=== PATIENT | female | born 1995 | race Caucasian/White ===

== ENCOUNTER 2016-04-02 16:02 | Emergency (ER) | payer OTHER ==
[~2016-04-02] VITALS: Ht 160 cm; Wt 62.0 kg
[2016-04-02 16:08] VITALS: BP 139/90; PULSE 120; RESP 16; TEMP 98; O2SAT 98
--- NOTE | 2016-04-02 16:24 | PD ---
HPI Chief Complaint: Edema Time Seen by Provider: 16:22 Travel History International Travel<30 days: No Contact w/Intl Traveler<30days: No Traveled to known affect area: No History of Present Illness HPI 20-year-old female came to the emergency room with history of a small nodule in her right groin area that she noticed since yesterday. Patient says that she notices that nodule/not appearing every now and then for past 2 years. Patient had a plasmapheresis done from that site 2 years ago. Since then she has noticed to not come and go. She is here with her sister and they're concerned if there is any sort of a pseudoaneurysm. No history of fever or chills. Patient shaves in that region. Vital signs are stable. [facility] Past Medical History Narrative Medical List of her past medical history as reviewed from the nursing note. LMP: 03/22/16 Social History Tobacco Use: Yes Allergies-Medications (Allergen,Severity, Reaction): Coded Allergies: Celexa (Verified Allergy, Severe, Hives, 04/02/16) Klonopin (Verified Allergy, Severe, Dizziness, 04/02/16) Morphine (Verified Allergy, Severe, Nausea/Vomiting, 04/02/16) Remicade (Verified Allergy, Severe, Anaphylaxis, 04/02/16) Buspar (Verified Allergy, Unknown, 04/02/16) Uncoded Allergies: HUMIRA (Allergy, Severe, 04/02/16) DAMAGE TO EAR Comments List of her allergies reviewed from the nursing note. Reported Meds & Prescriptions Reported Meds & Active Scripts Active No Active Prescriptions or Reported Medications Narrative Medication List of her home medications reviewed from the nursing note. Review of Systems Except as stated in HPI: all other systems reviewed are Neg Physical Exam Narrative GENERAL: Awake, alert, anxious SKIN: Warm and dry. 1 cm x 1 cm firm nodule in the right groin area which is non-erythematous and nontender HEAD: Atraumatic. Normocephalic. EYES: Pupils equal and round. No scleral icterus. No injection or drainage. ENT: No nasal bleeding or discharge. Mucous membranes pink and moist. NECK: Trachea midline. No JVD. CARDIOVASCULAR: Regular rate and rhythm. No murmur appreciated. RESPIRATORY: No accessory muscle use. Clear to auscultation. Breath sounds equal bilaterally. GASTROINTESTINAL: Abdomen soft, non-tender, nondistended. Hepatic and splenic margins not palpable. MUSCULOSKELETAL: No obvious deformities. No clubbing. No cyanosis. No edema. NEUROLOGICAL: Awake and alert. No obvious cranial nerve deficits. Motor grossly within normal limits. Normal speech. PSYCHIATRIC: Appropriate mood and affect; insight and judgment normal. Data Data Last Documented VS Vital Signs Date Time Temp Pulse Resp B/P Pulse Ox O2 Delivery O2 Flow Rate FiO2 04/02/16 16:21 16 04/02/16 16:08 98.0 120 139/90 98 Room Air Orders Us Leg Hematoma/Pseudoaneurysm (04/02/16 18:34) MDM Medical Decision Making Medical Screen Exam Complete: Yes Emergency Medical Condition: Yes Medical Record Reviewed: Yes Differential Diagnosis Inguinal lymphadenopathy, indurated skin, abscess, folliculitis Narrative Course 6:38 PM I explained to the patient and her sister that upon my exam the nodule does not appear to be anything dangerous and an ultrasound could be done as an outpatient ordered by her primary care. However patient insisted that she wanted this to be checked out since this was really making her anxious. Ultrasound has been done. Awaiting for the test result. 7:07 PM ultrasound shows a 1.1 cm fluid-filled structure which could be a sebaceous cyst. I will discharge this patient. Procedures EKG Prior to Arrival: No Diagnosis Primary Impression: Sebaceous cyst Referrals: Collin Cho MD Primary Care Physician Additional Instructions: Please follow-up with your primary care who can refer you to a general surgeon who could probably excise the cyst. You can also call the surgeon whose name and number has been provided to you if you prefer. Med/Other Pt SpecificInfo: No Change to Meds Scripts No Active Prescriptions or Reported Meds Disposition: 01 DISCHARGE HOME Condition: Stable Audra Kinney MD Apr 02, 2016 16:24
--- NOTE | 2016-04-02 19:03 | RADRPT ---
EXAM DATE/TIME: 04/02/2016 17:32 [facility] COMPARISON: No previous studies available for comparison. INDICATIONS : Right leg palpable mass. MEDICAL HISTORY : Plasmapheresis. SURGICAL HISTORY : None. ENCOUNTER: Initial ACUITY: 1 day PAIN SCORE: 4/10 LOCATION: Right groin. AREA EVALUATED: Right medial groin. FINDINGS: Targeted ultrasound to palpable area in the right groin was performed. In the medial groin, there is a focal fluid collection in the subcutaneous soft tissues which measures 1.0 x 0.4 cm. This demonst rates good through-transmission, and is anechoic and there is no flow seen within or about by color D oppler. There is also a solitary lymph node in the region which is normal sonographic features of no rmal size, measuring 1.1-0.9-0.6 cm. CONCLUSION: There is a 1.1 cm lesion in the subcutaneous soft tissues of the medial groin which has fluid charact eristics by ultrasound. No internal flow or hyperemia seen. Marlon Perkins MD on April 02, 2016 at 18:59 Board Certified Radiologist. This report was verified electronically.
== END 2016-04-02 19:43 | disposition home or self-care (01) ==
LOC: NEPC 16:02
DX: L72.3 Sebaceous cyst (principal); Z72.0 Tobacco use
CPT/HCPCS: 93926

== ENCOUNTER 2017-03-09 17:24 | Emergency (ER) | payer OTHER ==
[~2017-03-09] VITALS: Ht 160 cm; Wt 56.5 kg
[2017-03-09 17:25] VITALS: BP 140/75; PULSE 129; RESP 20; TEMP 99.1; O2SAT 99
[2017-03-09] MEDS ORDERED: BENA25CA4 (18:55)
[2017-03-09] MEDS ORDERED: ALPR0.25 PO (18:55)
[2017-03-09] MEDS ORDERED: SPRI28TA PO (18:55)
[2017-03-09] MEDS ORDERED: SODIUM CHLOR 0.9% 1000 ML INJ 1,000 ML IV SCH (19:01)
--- NOTE | 2017-03-09 19:05 | PD ---
HPI Chief Complaint: Abdominal Pain Time Seen by Provider: 18:56 Travel History International Travel<30 days: No Contact w/Intl Traveler<30days: No Traveled to known affect area: No History of Present Illness HPI Examined in the presence of a female nurse. 21-year-old female presents for evaluation of the pain. She reports that she woke up this morning at 6 AM with nausea, vomiting. She went back to sleep and when she woke back up at 9 AM she had persistent nausea which has lasted throughout the day. She has had little to eat or drink throughout the day. She reports that she felt some right upper quadrant pain that radiates into the back this morning as well. The pain is a sharp pain which is constant, no obvious aggravating or alleviating factors. She endorses chills, myalgias, temperature 100.3 this morning. Denies dysuria, hematuria, increased urinary frequency or hesitancy. She endorses chronic diarrhea but denies any acute bowel changes. She denies any cough, congestion, sore throat. She reports that one month ago she was told that she had an abnormally contracted gallbladder on CT scan. She has no other complaints at this time. [facility] Past Medical History Asthma: Yes Diabetes: No Medical other: Yes (CROHN'S) Migraines: Yes Tetanus Vaccination: > 5 Years Influenza Vaccination: No ?: Not LMP: 02/15/17 Past Surgical History Abdominal Surgery: Yes (COLON RESECTION) Other Surgery: Yes (RECTAL SURGERY, SEPTAL) Social History Alcohol Use: No Tobacco Use: No Substance Use: No Allergies-Medications (Allergen,Severity, Reaction): Coded Allergies: citalopram (Unverified Allergy, Severe, Hives, 03/09/17) clonazepam (Unverified Allergy, Severe, Dizziness, 03/09/17) infliximab (Unverified Allergy, Severe, Anaphylaxis, 03/09/17) infliximab-dyyb (Unverified Allergy, Severe, Anaphylaxis, 03/09/17) morphine (Unverified Allergy, Severe, Nausea/Vomiting, 03/09/17) buspirone (Unverified Allergy, Unknown, 03/09/17) Uncoded Allergies: HUMIRA (Allergy, Severe, ANAPHYLAXIS, 03/09/17) Reported Meds & Prescriptions Reported Meds & Active Scripts Active Zofran (Ondansetron HCl) 4 Mg Tab 4 Mg PO Q6HR PRN Reported Sprintec 28 (Norgestimate-Ethinyl Estradiol) 0.25-35 mg-Mcg Tab 1 Tab PO DAILY Alprazolam 0.25 Mg Tab 0.25 Mg PO Q8H PRN Benadryl Allergy (Diphenhydramine HCl) 25 Mg Cap Review of Systems Except as stated in HPI: all other systems reviewed are Neg Physical Exam Narrative GENERAL: Well-developed well-nourished female in no acute distress SKIN: Warm and dry. HEAD: Atraumatic. Normocephalic. EYES: Pupils equal and round. No scleral icterus. No injection or drainage. ENT: No nasal bleeding or discharge. Mucous membranes pink and moist. NECK: Trachea midline. No JVD. CARDIOVASCULAR: Regular rate and rhythm. No murmur appreciated. RESPIRATORY: No accessory muscle use. Clear to auscultation. Breath sounds equal bilaterally. GASTROINTESTINAL: Abdomen soft, there is some focal tenderness to palpation in the right upper quadrant without guarding. MUSCULOSKELETAL: No obvious deformities. No clubbing. No cyanosis. No edema. NEUROLOGICAL: Awake and alert. No obvious cranial nerve deficits. Motor grossly within normal limits. Normal speech. PSYCHIATRIC: Appropriate mood and affect; insight and judgment normal. Data Data Last Documented VS Vital Signs Date Time Temp Pulse Resp B/P (MAP) Pulse Ox O2 Delivery O2 Flow Rate FiO2 03/09/17 18:49 18 03/09/17 17:25 99.1 129 140/75 (96) 99 Room Air Orders Orders Complete Blood Count With Diff (03/09/17 19:01) Comprehensive Metabolic Panel (03/09/17 19:01) Lipase (03/09/17 19:01) Urinalysis - C+S If Indicated (03/09/17 19:01) Us Abdomen Gallbladder (03/09/17 ) Iv Access Insert/Monitor (03/09/17 19:01) Ecg Monitoring (03/09/17 19:01) Oximetry (03/09/17 19:01) Ondansetron Inj (Zofran Inj) (03/09/17 19:15) Sodium Chlor 0.9% 1000 Ml Inj (Ns 1000 M (03/09/17 19:01) Sodium Chloride 0.9% Flush (Ns Flush) (03/09/17 19:15) Ed Urine Pregnancytest Poc (03/09/17 19:01) Lactic Acid Sepsis Protocol (03/09/17 19:01) Blood Culture (03/09/17 19:01) Ct Abd/Pel W Iv Contrast(Rout) (03/09/17 21:20) Acetaminophen (Tylenol) (03/09/17 21:45) Iohexol 350 Inj (Omnipaque 350 Inj) (03/09/17 22:09) Dicyclomine Inj (Bentyl Inj) (03/09/17 22:45) Pantoprazole Inj (Protonix Inj) (03/09/17 22:45) Ed Discharge Order (03/09/17 22:41) Labs Laboratory Tests Test 03/09/17 19:00 03/09/17 19:05 03/09/17 19:40 White Blood Count 6.0 TH/MM3 Red Blood Count 4.49 MIL/MM3 Hemoglobin 13.1 GM/DL Hematocrit 36.7 % Mean Corpuscular Volume 81.7 FL Mean Corpuscular Hemoglobin 29.2 PG Mean Corpuscular Hemoglobin Concent 35.7 % Red Cell Distribution Width 15.0 % Platelet Count 250 TH/MM3 Mean Platelet Volume 8.1 FL Neutrophils (%) (Auto) 77.9 % Lymphocytes (%) (Auto) 11.5 % Monocytes (%) (Auto) 10.1 % Eosinophils (%) (Auto) 0.0 % Basophils (%) (Auto) 0.5 % Neutrophils # (Auto) 4.7 TH/MM3 Lymphocytes # (Auto) 0.7 TH/MM3 Monocytes # (Auto) 0.6 TH/MM3 Eosinophils # (Auto) 0.0 TH/MM3 Basophils # (Auto) 0.0 TH/MM3 CBC Comment DIFF FINAL Differential Comment Blood Urea Nitrogen 9 MG/DL Creatinine 0.80 MG/DL Random Glucose 85 MG/DL Total Protein 8.6 GM/DL Albumin 4.0 GM/DL Calcium Level 9.3 MG/DL Alkaline Phosphatase 45 U/L Aspartate Amino Transf (AST/SGOT) 28 U/L Alanine Aminotransferase (ALT/SGPT) 21 U/L Total Bilirubin 0.5 MG/DL Sodium Level 134 MEQ/L Potassium Level 4.1 MEQ/L Chloride Level 99 MEQ/L Carbon Dioxide Level 24.7 MEQ/L Anion Gap 10 MEQ/L Estimat Glomerular Filtration Rate 90 ML/MIN Lipase 98 U/L Lactic Acid Level 1.1 mmol/L Urine Color YELLOW Urine Turbidity CLEAR Urine pH 6.0 Urine Specific [place] 1.011 Urine Protein NEG mg/dL Urine Glucose (UA) NEG mg/dL Urine Ketones 40 mg/dL Urine Occult Blood NEG Urine Nitrite NEG Urine Bilirubin NEG Urine Urobilinogen LESS THAN 2.0 MG/DL Urine Leukocyte Esterase NEG Urine RBC 5 /hpf Urine WBC LESS THAN 1 /hpf Urine Squamous Epithelial Cells 2 /hpf Urine Bacteria RARE /hpf Urine Hyaline Casts 1 /lpf Urine Mucus FEW /lpf Microscopic Urinalysis Comment CULT NOT INDICATED MDM Medical Decision Making Medical Screen Exam Complete: Yes Emergency Medical Condition: Yes Medical Record Reviewed: Yes Differential Diagnosis Colitis, pyelonephritis, cholecystitis, diverticulitis, appendicitis Narrative Course The patient was placed on ECG monitoring pulse oximetry. Plan is for basic lab work, right upper quadrant ultrasound. She will be given IV fluids, Zofran. CBC is unremarkable. CMP is unremarkable. Lactic acid within normal limits. Urinalysis reveals 5 RBCs and rare bacteria. Gallbladder ultrasound is unremarkable. Given the patient's initial tachycardia, low-grade fever at home as well as history of Crohn's, CT of the abdomen and pelvis has been ordered. Upon examination the patient does feel improved and her heart rate has improved into the mid 90s. CT the abdomen and pelvis reveals no acute abnormalities. The patient feels improved. She will be given Bentyl and Protonix prior to discharge. Diagnosis Primary Impression: Abdominal pain Additional Instructions: Zofran for nausea. Slowly advance diet as tolerated. Follow-up with primary care physician and gastroenterology as scheduled. Return for any emergent medical conditions. Med/Other Pt SpecificInfo: Prescription(s) given Scripts Ondansetron (Zofran) 4 Mg Tab 4 MG PO Q6HR Y for NAUSEA OR VOMITING, #20 TAB 0 Refills Prov: Edwardo Lawson MD 03/09/17 Disposition: 01 DISCHARGE HOME Condition: Stable Maximo Hinson Mar 09, 2017 19:05
[2017-03-09] MEDS: SODIUM CHLORIDE 0.9% FLUSH 10 ML FLUSH IV FLUSH PRN ×2 (19:14→23:04)
[2017-03-09] MEDS ORDERED: ONDANSETRON HCL 4 MG/2 ML VIAL IVP ONE (19:15)
[2017-03-09 19:26] LABS: AUTOMATED NEUTROPHIL # 4.7 TH/MM3 (1.8-7.7); BASOPHIL % 0.5 % (0.0-2.0); HEMATOCRIT 36.7 % (35.0-46.0); HEMOGLOBIN 13.1 GM/DL (11.6-15.3); LYMPH % 11.5 % (9.0-44.0); LYMPHOCYTE # 0.7 TH/MM3 (1.0-4.8); MEAN CELL VOLUME 81.7 FL (80.0-100.0); MEAN CORPUSCULAR HEMOGLOBIN 29.2 PG (27.0-34.0); MEAN CORPUSCULAR HGB CONC 35.7 % (32.0-36.0); MEAN PLATELET VOLUME 8.1 FL (7.0-11.0); MONO % 10.1 % (0.0-8.0); MONOCYTE # 0.6 TH/MM3 (0-0.9); NEUT % 77.9 % (16.0-70.0); PLATELET COUNT 250 TH/MM3 (150-450); RED BLOOD COUNT 4.49 MIL/MM3 (4.00-5.30)
[2017-03-09 19:42] LABS: AST (GOT) 28 U/L (15-37); BICARBONATE 24.7 MEQ/L (21.0-32.0); BLOOD UREA NITROGEN 9 MG/DL (7-18); CALCIUM 9.3 MG/DL (8.5-10.1); CHLORIDE 99 MEQ/L (98-107); GLOMERULAR FILTRATION RATE 90 ML/MIN (>89); GLUCOSE,RANDOM 85 MG/DL (74-106); LIPASE 98 U/L (73-393); SODIUM (NA) 134 MEQ/L (136-145)
[2017-03-09 19:43] LABS: ALT (GPT) 21 U/L (10-53)
[2017-03-09 19:46] LABS: ALKALINE PHOSPHATASE 45 U/L (45-117); TOTAL BILIRUBIN ADULT 0.5 MG/DL (0.2-1.0); TOTAL PROTEIN 8.6 GM/DL (6.4-8.2)
[2017-03-09 20:22] LABS: BACTERIA, URINE RARE /hpf; BILIRUBIN, URINE NEG (NEG); BLOOD, URINE NEG (NEG); GLUCOSE,URINE NEG (NEG); HYALINE CAST, URINE 1 /lpf (RARE); KETONE, URINE 40 mg/dL (NEG); MUCUS URINE FEW /lpf (OCC); NITRITE,URINE NEG (NEG); SQUAMOUS EPITHELIAL CELL URINE 2 /hpf (0-5); URINE COLOR YELLOW (YELLW/STRAW); URINE LEUKOCYTE ESTERASE NEG (NEG)
--- NOTE | 2017-03-09 21:13 | RADRPT ---
EXAM DATE/TIME: 03/09/2017 20:25 [facility] COMPARISON: No previous studies available for comparison. INDICATIONS : Right upper quadrant pain. MEDICAL HISTORY : Crohn's disease. Migraines. Asthma. SURGICAL HISTORY : Colon resection. Rectal surgery. ENCOUNTER: Initial ACUITY: 4-6 days PAIN SCORE: 7/10 LOCATION: Right upper quadrant MEASUREMENTS: LIVER: 13.5 cm length COMMON DUCT: 3 mm RIGHT KIDNEY: 9.8 x 4.1 x 4.1 cm FINDINGS: LIVER: Normal echotexture without focal lesion or ductal dilatation. COMMON DUCT: No intraluminal mass or stone visualized. GALLBLADDER: Contains no stones, demonstrates no wall thickening or pericholecystic fluid. PANCREAS: The visualized portions are within normal limits. RIGHT KIDNEY: No evidence of hydronephrosis, stone, or mass. CONCLUSION: Normal examination for a patient of this age. Sid Lopez MD on March 09, 2017 at 21:10 Board Certified Radiologist. This report was verified electronically.
[2017-03-09] MEDS ORDERED: ACETAMINOPHEN 325 MG TAB PO ONE (21:45)
[2017-03-09] MEDS ORDERED: IOHEXOL 350 MG/ML 10 ML VIAL (for RAD DIAG) IVCONTRAST ONE (22:09)
--- NOTE | 2017-03-09 22:35 | RADRPT ---
EXAM DATE/TIME: 03/09/2017 22:08 [facility] COMPARISON: No previous studies available for comparison. INDICATIONS : Abdominal pain. IV CONTRAST: 80 cc Omnipaque 350 (iohexol) IV ORAL CONTRAST: No oral contrast ingested. RADIATION DOSE: 4.97 CTDIvol (mGy) MEDICAL HISTORY : Crohn's disease. Asthma SURGICAL HISTORY : Colon resection. ENCOUNTER: Initial ACUITY: 1 day PAIN SCALE: 8/10 LOCATION: abdomen TECHNIQUE: Volumetric scanning of the abdomen and pelvis was performed. Using automated exposure control and ad justment of the mA and/or kV according to patient size, radiation dose was kept as low as reasonably achievable to obtain optimal diagnostic quality images. DICOM format image data is available electro nically for review and comparison. FINDINGS: One no acute findings at the lung bases. Liver, spleen, adrenals, kidneys and pancreas are unremarkab le. No calcified gallstones or biliary ductal dilatation. No free fluid. No bowel obstruction. No significant abnormal mural thickening of bowel identified. No inflammatory changes are seen within the abdomen and pelvis. CONCLUSION: 1. No acute findings on abdomen and pelvic CT. Sid Lopez MD on March 09, 2017 at 22:30 Board Certified Radiologist. This report was verified electronically.
[2017-03-09] MEDS ORDERED: ZOFR4TAB PO (22:42)
[2017-03-09] MEDS ORDERED: PANTOPRAZOLE SODIUM 40 MG VIAL IV PUSH ONE (22:45)
[2017-03-09] MEDS ORDERED: DICYCLOMINE HCL 20 MG/2 ML VIAL IM ONE (22:45)
[2017-03-09 23:06] VITALS: BP 109/58
== END 2017-03-09 23:06 | disposition home or self-care (01) ==
LOC: NEPE 17:24
DX: R10.9 Unspecified abdominal pain (principal); K50.90 Crohn's disease, unspecified, without complications
CPT/HCPCS: 74177; 76705; 80053; 81001; 83605; 83690; 84703; 85025; 87040; 96361; 96374; 96375; 99285; C9113; J0500; J2405; J7030; Q9967

== ENCOUNTER 2017-06-18 19:38 | Inpatient (IN) | payer OTHER ==
[~2017-06-18 19:38] MED LIST: ALPR0.25 PO; BENA25CA4 PO; SPRI28TA PO; ZOFR4TAB PO
[2017-06-18 19:41] VITALS: BP 153/75; PULSE 104; RESP 18; TEMP 99; O2SAT 99
[2017-06-18 20:02] LABS: AUTOMATED NEUTROPHIL # 6.6 TH/MM3 (1.8-7.7); BASOPHIL # 0.1 TH/MM3 (0-0.2); BASOPHIL % 0.6 % (0.0-2.0); EOSINOPHIL # 0.1 TH/MM3 (0-0.4); EOSINOPHIL % 0.7 % (0.0-4.0); HEMATOCRIT 42.9 % (35.0-46.0); LYMPH % 22.9 % (9.0-44.0); LYMPHOCYTE # 2.2 TH/MM3 (1.0-4.8); MEAN CELL VOLUME 90.1 FL (80.0-100.0); MEAN CORPUSCULAR HEMOGLOBIN 31.4 PG (27.0-34.0); MEAN CORPUSCULAR HGB CONC 34.8 % (32.0-36.0); MEAN PLATELET VOLUME 7.8 FL (7.0-11.0); MONO % 7.4 % (0.0-8.0); MONOCYTE # 0.7 TH/MM3 (0-0.9); NEUT % 68.4 % (16.0-70.0); PLATELET COUNT 345 TH/MM3 (150-450); RED BLOOD COUNT 4.77 MIL/MM3 (4.00-5.30); RED CELL DISTRIBUTION WIDTH 12.8 % (11.6-17.2); WHITE BLOOD COUNT 9.6 TH/MM3 (4.0-11.0)
[2017-06-18 20:12] LABS: INTERNATIONAL NORMALIZED RATIO 1.1 RATIO; PROTHROMBIN TIME - PATIENT 10.8 SEC (9.8-11.6)
[2017-06-18 20:15] LABS: ALBUMIN 4.2 GM/DL (3.4-5.0); AST (GOT) 14 U/L (15-37); BICARBONATE 30.2 MEQ/L (21.0-32.0); BLOOD UREA NITROGEN 24 MG/DL (7-18); CHLORIDE 102 MEQ/L (98-107); CREATININE 0.82 MG/DL (0.50-1.00); GLOMERULAR FILTRATION RATE 87 ML/MIN (>89); GLUCOSE,RANDOM 84 MG/DL (74-106); SODIUM (NA) 138 MEQ/L (136-145)
[2017-06-18 20:16] LABS: ALT (GPT) 17 U/L (10-53)
[2017-06-18 20:18] LABS: ALKALINE PHOSPHATASE 39 U/L (45-117); TOTAL BILIRUBIN ADULT 0.4 MG/DL (0.2-1.0); TOTAL PROTEIN 8.2 GM/DL (6.4-8.2)
[2017-06-18] MEDS ORDERED: PROM25TA10 PO (21:23)
--- NOTE | 2017-06-18 21:24 | PD ---
Physical Exam Date Seen by Provider: Jun 18, 2017 Narrative Patient presents to us at the request of her ENT doctor because of apparent peritonsillar abscess which is getting worse rather than better with oral antibiotics. Her ENT has asked that the patient be admitted to the hospital for IV antibiotics. He will see the patient in consultation. Data Data Last Documented VS Vital Signs Date Time Temp Pulse Resp B/P (MAP) Pulse Ox O2 Delivery O2 Flow Rate FiO2 06/18/17 19:41 99.0 104 18 153/75 (101) 99 Orders Orders Complete Blood Count With Diff (06/18/17 19:43) Iv Access Insert/Monitor (06/18/17 19:43) Comprehensive Metabolic Panel (06/18/17 19:43) Act Partial Throm Time (Ptt) (06/18/17 19:43) Prothrombin Time / Inr (Pt) (06/18/17 19:43) Clindamycin 600 Mg/Ns Premix (Cleocin 60 (06/18/17 21:30) Dexamethasone Inj (Decadron Inj) (06/18/17 21:30) Labs Laboratory Tests Test 06/18/17 19:51 White Blood Count 9.6 TH/MM3 Red Blood Count 4.77 MIL/MM3 Hemoglobin 15.0 GM/DL Hematocrit 42.9 % Mean Corpuscular Volume 90.1 FL Mean Corpuscular Hemoglobin 31.4 PG Mean Corpuscular Hemoglobin Concent 34.8 % Red Cell Distribution Width 12.8 % Platelet Count 345 TH/MM3 Mean Platelet Volume 7.8 FL Neutrophils (%) (Auto) 68.4 % Lymphocytes (%) (Auto) 22.9 % Monocytes (%) (Auto) 7.4 % Eosinophils (%) (Auto) 0.7 % Basophils (%) (Auto) 0.6 % Neutrophils # (Auto) 6.6 TH/MM3 Lymphocytes # (Auto) 2.2 TH/MM3 Monocytes # (Auto) 0.7 TH/MM3 Eosinophils # (Auto) 0.1 TH/MM3 Basophils # (Auto) 0.1 TH/MM3 CBC Comment DIFF FINAL Differential Comment Prothrombin Time 10.8 SEC Prothromb Time International Ratio 1.1 RATIO Activated Partial Thromboplast Time 25.0 SEC Blood Urea Nitrogen 24 MG/DL Creatinine 0.82 MG/DL Random Glucose 84 MG/DL Total Protein 8.2 GM/DL Albumin 4.2 GM/DL Calcium Level 9.0 MG/DL Alkaline Phosphatase 39 U/L Aspartate Amino Transf (AST/SGOT) 14 U/L Alanine Aminotransferase (ALT/SGPT) 17 U/L Total Bilirubin 0.4 MG/DL Sodium Level 138 MEQ/L Potassium Level 4.1 MEQ/L Chloride Level 102 MEQ/L Carbon Dioxide Level 30.2 MEQ/L Anion Gap 6 MEQ/L Estimat Glomerular Filtration Rate 87 ML/MIN MDM Supervised Visit with ANITA: Yes Narrative Course I, Dr. Bustillo, have reviewed the advance practice practitioner's documentation and am in agreement, met with the patient face to face, made the diagnosis, and the medical decision making was done by me. *My assessment and Findings: Patient is not having any trouble maintaining her airway. She is able to speak without difficulty. She is able to swallow her own secretions. See Stanley Arciniega note for lab and radiology results, final diagnosis and disposition Page Bustillo MD Jun 18, 2017 21:24
[2017-06-18] MEDS ORDERED: DEXAMETHASONE SOD PHOS 20 MG/5 ML VIAL IV PUSH ONE (21:30)
[2017-06-18] MEDS ORDERED: CLINDAMYCIN 600 MG/NS PREMIX 50 ML IV ONE (21:30)
[2017-06-18] MEDS ORDERED: EPINEPHrine HCL (1:1000) 1 MG/ML VIAL IM ONE (21:30)
[2017-06-18] MEDS ORDERED: diphenhydrAMINE HCL 50 MG/ML VIAL ONE (21:31)
[2017-06-18] MEDS ORDERED: ALPRAZolam 0.25 MG TAB PO ONE (21:45)
[2017-06-18] MEDS ORDERED: ONDANSETRON HCL 4 MG/2 ML VIAL IV PUSH PRN (21:45)
[2017-06-18] MEDS ORDERED: diphenhydrAMINE HCL 50 MG/ML VIAL IV PUSH ONE (21:45)
[2017-06-18] MEDS ORDERED: ACETAMINOPHEN/HYDROcodone 325 MG/7.5 MG TAB PO PRN (21:45)
[2017-06-18 22:17] VITALS: BP 133/66; PULSE 113; RESP 16; TEMP 98.3; O2SAT 100
--- NOTE | 2017-06-18 22:20 | PD ---
HPI Chief Complaint: ENT Complaint Time Seen by Provider: 21:05 Travel History International Travel<30 days: No Contact w/Intl Traveler<30days: No Traveled to known affect area: No History of Present Illness HPI 21-year-old female that presents to the ED for evaluation of infection to her throat. Per patient she was sent here by Dr. Castillo for evaluation of this. Per patient she was told that she needed IV antibiotics. She reports that she has been dealing with this for about 2-1/2 months now. Patient follow with her primary care doctor who started her on azithromycin and then gave her Augmentin. She did follow with Dr. Castillo who has been following her up and started her again on Augmentin and dexamethasone. This did not work and the symptoms continue and patient was seen today and recommended that the patient comes here for evaluation and likely IV antibiotics. Patient has a significant history of Crohn's disease but currently takes no medications as she is very allergic to a lot of the medications for Crohn's. She apparently has a lot of reactions to the medications secondary to "a base " found in humira and infliximab and was told to watch for this in other medications. She apparently just finished Augmentin and took the medrol dose pack given to her recently. Patient denies any fevers chills or sweats. Per patient the pain of her throat is 4 out of 10. Hurts to swallow but able to swallow. No hoarseness. PFSH Past Medical History Asthma: Yes Diabetes: No Migraines: Yes ?: Not LMP: 06/17/17 Past Surgical History Abdominal Surgery: Yes (COLON RESECTION) Other Surgery: Yes (RECTAL SURGERY, SEPTAL) Social History Alcohol Use: No Tobacco Use: No Substance Use: No Allergies-Medications (Allergen,Severity, Reaction): Coded Allergies: citalopram (Unverified Allergy, Severe, Hives, 03/09/17) clonazepam (Unverified Allergy, Severe, Dizziness, 03/09/17) dexamethasone (Verified Allergy, Severe, Hives, 06/18/17) infliximab (Unverified Allergy, Severe, Anaphylaxis, 03/09/17) infliximab-dyyb (Unverified Allergy, Severe, Anaphylaxis, 03/09/17) morphine (Unverified Allergy, Severe, Nausea/Vomiting, 03/09/17) Rat Serum Proteins (Verified Allergy, Unknown, 06/18/17) buspirone (Unverified Allergy, Unknown, 03/09/17) iron (Verified Allergy, Unknown, 06/18/17) Uncoded Allergies: HUMIRA (Allergy, Severe, ANAPHYLAXIS, 03/09/17) Reported Meds & Prescriptions Reported Meds & Active Scripts Active Reported Phenergan (Promethazine HCl) 25 Mg Tablet 25 Mg PO ONCE Sprintec 28 (Norgestimate-Ethinyl Estradiol) 0.25-35 mg-Mcg Tab 1 Tab PO DAILY Alprazolam 0.25 Mg Tab 0.25 Mg PO Q8H PRN Benadryl Allergy (Diphenhydramine HCl) 25 Mg Cap Review of Systems Except as stated in HPI: all other systems reviewed are Neg Physical Exam Narrative GENERAL: SKIN: Warm and dry. HEAD: Atraumatic. Normocephalic. EYES: Pupils equal and round. No scleral icterus. No injection or drainage. ENT: No nasal bleeding or discharge. Mucous membranes pink and moist. Tongue is midline. No uvula deviation. Patient has enlarged tonsils bilaterally with exudates bilaterally. Right worse than left. Some purulence appears to be more noted on the right than the left. No obvious lymphadenopathy. NECK: Trachea midline. No JVD. CARDIOVASCULAR: Regular rate and rhythm. RESPIRATORY: No accessory muscle use. Clear to auscultation. Breath sounds equal bilaterally. GASTROINTESTINAL: Abdomen soft, non-tender, nondistended. Hepatic and splenic margins not palpable. MUSCULOSKELETAL: Extremities without clubbing, cyanosis, or edema. No obvious deformities. NEUROLOGICAL: Awake and alert. No obvious cranial nerve deficits. Motor grossly within normal limits. Five out of 5 muscle strength in the arms and legs. Normal speech. PSYCHIATRIC: Appropriate mood and affect; insight and judgment normal. Data Data Last Documented VS Vital Signs Date Time Temp Pulse Resp B/P (MAP) Pulse Ox O2 Delivery O2 Flow Rate FiO2 06/18/17 19:41 99.0 104 18 153/75 (101) 99 Orders Orders Complete Blood Count With Diff (06/18/17 19:43) Iv Access Insert/Monitor (06/18/17 19:43) Comprehensive Metabolic Panel (06/18/17 19:43) Act Partial Throm Time (Ptt) (06/18/17 19:43) Prothrombin Time / Inr (Pt) (06/18/17 19:43) Clindamycin 600 Mg/Ns Premix (Cleocin 60 (06/18/17 21:30) Dexamethasone Inj (Decadron Inj) (06/18/17 21:30) Epinephrine (1:1000) Inj (Adrenalin (1:1 (06/18/17 21:30) Diphenhydramine Inj (Benadryl Inj) (06/18/17 21:45) Diphenhydramine Inj (Benadryl Inj) (06/18/17 21:31) Admit Order (Ed Use Only) (06/18/17 21:34) Clindamycin 900 Mg/Ns Premix (Cleocin 90 (06/19/17 06:00) Dexamethasone Inj (Decadron Inj) (06/19/17 02:00) Acetamin-Hydrocod 325-7.5 Mg ([place] 7.5 (06/18/17 21:45) Ondansetron Inj (Zofran Inj) (06/18/17 21:45) C Diff Toxin Pcr (06/18/17 21:33) Diet Regular Basic (06/19/17 Breakfast) Consult Ent (06/18/17 ) Activity Oob Ad Alondra (06/18/17 21:33) Vital Signs (Adult) BILL.Q4H (06/18/17 21:33) Admit To Inpatient (06/18/17 ) Inpatient Certification (06/18/17 ) Labs Laboratory Tests Test 06/18/17 19:51 White Blood Count 9.6 TH/MM3 Red Blood Count 4.77 MIL/MM3 Hemoglobin 15.0 GM/DL Hematocrit 42.9 % Mean Corpuscular Volume 90.1 FL Mean Corpuscular Hemoglobin 31.4 PG Mean Corpuscular Hemoglobin Concent 34.8 % Red Cell Distribution Width 12.8 % Platelet Count 345 TH/MM3 Mean Platelet Volume 7.8 FL Neutrophils (%) (Auto) 68.4 % Lymphocytes (%) (Auto) 22.9 % Monocytes (%) (Auto) 7.4 % Eosinophils (%) (Auto) 0.7 % Basophils (%) (Auto) 0.6 % Neutrophils # (Auto) 6.6 TH/MM3 Lymphocytes # (Auto) 2.2 TH/MM3 Monocytes # (Auto) 0.7 TH/MM3 Eosinophils # (Auto) 0.1 TH/MM3 Basophils # (Auto) 0.1 TH/MM3 CBC Comment DIFF FINAL Differential Comment Prothrombin Time 10.8 SEC Prothromb Time International Ratio 1.1 RATIO Activated Partial Thromboplast Time 25.0 SEC Blood Urea Nitrogen 24 MG/DL Creatinine 0.82 MG/DL Random Glucose 84 MG/DL Total Protein 8.2 GM/DL Albumin 4.2 GM/DL Calcium Level 9.0 MG/DL Alkaline Phosphatase 39 U/L Aspartate Amino Transf (AST/SGOT) 14 U/L Alanine Aminotransferase (ALT/SGPT) 17 U/L Total Bilirubin 0.4 MG/DL Sodium Level 138 MEQ/L Potassium Level 4.1 MEQ/L Chloride Level 102 MEQ/L Carbon Dioxide Level 30.2 MEQ/L Anion Gap 6 MEQ/L Estimat Glomerular Filtration Rate 87 ML/MIN MDM Medical Decision Making Medical Screen Exam Complete: Yes Emergency Medical Condition: Yes Medical Record Reviewed: Yes Interpretation(s) CBC & BMP Diagram 06/18/17 19:51 Total Protein 8.2, Albumin 4.2, Calcium Level 9.0, Alkaline Phosphatase 39 L, Aspartate Amino Transf (AST/SGOT) 14 L, Alanine Aminotransferase (ALT/SGPT) 17, Total Bilirubin 0.4 Differential Diagnosis Tonsillitis versus tonsil abscess versus peritonsillar abscess Narrative Course 21-year-old female that presents to the ED for evaluation of sore throat and tonsillar abscess. Patient was properly examined and was found to have signs and symptoms consistent appears to be possible tonsillar abscess that appears to be draining. Labs were done in triage. Patient was seen by Dr. Castillo in his office and sent here for admission and IV antibiotics. I spoke with Dr. Castillo over the phone who wanted us to admit the patient to medicine and start patient on IV clindamycin as well as dexamethasone as patient continues to have symptoms and does not appear to be improving. He states that he is not expecting the patient to have any surgery and patient can eat. Consult to him. Patient was told this and patient agrees to for us to proceed. IV clindamycin and dexamethasone ordered by me. Case discussed with Dr. Kauffman who agreed to admission. While I was discussing the case with Dr. Kauffman for admission I was called by ED nurse that patient was having a reaction to the dexamethasone. Patient was having erythema and burning sensation. She was feeling short of breath but that went away. My attending Dr Bustillo was made aware of this and evaluated patient with me immediately. Immediately Benadryl was given. Patient was given epi nephron. Symptoms improved. No other medication was given so likely this is a reaction to dexamethasone. At this time this medication will be added to her medical allergies. I paged the [facility] doctors and Dr. Burrell was superintendent of generation now for Dr. Kauffman was made aware of need to stop this medication as patient appears to be allergic to it. I did discuss with the patient if she has ever had steroids IV in the past and she states that she has had and she actually has taken steroids multiple times with no problems, more especifically she has taken solumedrol with no issues. Diagnosis Primary Impression: Tonsillar abscess Additional Impression: Failure of outpatient treatment Admitting Information Admitting Physician Requests: Jesus Riley Jun 18, 2017 22:20
[2017-06-19] MEDS ORDERED: NALT50TA3 PO (00:16)
[2017-06-19] MEDS ORDERED: POTA2TAB PO (00:23)
[2017-06-19] MEDS ORDERED: GING500C2 PO (00:23)
[2017-06-19] MEDS ORDERED: CHOL5000 PO (00:23)
[2017-06-19] MEDS ORDERED: FOLI800T PO (00:23)
[2017-06-19] MEDS ORDERED: LACTCAP8 PO ×2 (00:23)
[2017-06-19] MEDS ORDERED: ECHI500C5 PO (00:27)
[2017-06-19] MEDS ORDERED: TURM500C PO (00:27)
[2017-06-19] MEDS ORDERED: [UNRECOGNIZED DRUG - OTHER] PO (00:29)
[2017-06-19] MEDS ORDERED: DEXAMETHASONE SOD PHOS 4 MG/ML VIAL IV PUSH SCH (02:00)
[2017-06-19 04:33] VITALS: BP 108/55; PULSE 83; RESP 16; TEMP 98.5; O2SAT 97
[2017-06-19] MEDS: diphenhydrAMINE HCL 25 MG CAP PO PRN ×2 (05:07→20:58)
[2017-06-19] MEDS: CLINDAMYCIN 900 MG/NS PREMIX 50 ML IV SCH ×3 (06:13→22:55)
--- NOTE | 2017-06-19 06:46 | PD.CONS ---
History of Present Illness Service ENT Consult Requested By ED Reason for Consult Right peritonsillar abscess Primary Care Physician Marlon Sampson MD Diagnoses: History of Present Illness 21 year old female has had tonsillitis for the past month. Has been treated with PO Azithromycin, Augmentin and Medrol dose pack twice. Had some spontaneous drainage from a right [employer] but has not resolved. Admitted for IV therapy. Had had improvement overnight. Review of Systems Ears, nose, mouth, throat: COMPLAINS OF: Throat pain, DENIES: Nasal discharge, Oral lesions Past Family Social History Allergies: Coded Allergies: citalopram (Unverified Allergy, Severe, Hives, 03/09/17) clonazepam (Unverified Allergy, Severe, Dizziness, 03/09/17) dexamethasone (Verified Allergy, Severe, Hives, 06/18/17) infliximab (Unverified Allergy, Severe, Anaphylaxis, 03/09/17) infliximab-dyyb (Unverified Allergy, Severe, Anaphylaxis, 03/09/17) morphine (Unverified Allergy, Severe, Nausea/Vomiting, 03/09/17) Rat Serum Proteins (Verified Allergy, Unknown, 06/18/17) buspirone (Unverified Allergy, Unknown, 03/09/17) iron (Verified Allergy, Unknown, 06/18/17) Uncoded Allergies: HUMIRA (Allergy, Severe, ANAPHYLAXIS, 03/09/17) Physical Exam Vital Signs Vital Signs Date Time Temp Pulse Resp B/P (MAP) Pulse Ox O2 Delivery O2 Flow Rate FiO2 06/19/17 04:33 98.5 83 16 108/55 (72) 97 06/18/17 22:17 98.3 113 16 133/66 (88) 100 06/18/17 21:39 114 150/96 06/18/17 19:41 99.0 104 18 153/75 (101) 99 Physical Exam GENERAL: This is a well-nourished, well-developed patient, in no apparent distress. SKIN: No rashes, ecchymoses or lesions. Cool and dry. HEAD: Atraumatic. Normocephalic. No temporal or scalp tenderness. EYES: Pupils equal round and reactive. Extraocular motions intact. No scleral icterus. No injection or drainage. ENT: Nose without bleeding, purulent drainage or septal hematoma. Throat with tonsillar hypertrophy, resolving exudate. Uvula midline. Airway patent. NECK: Trachea midline. No JVD or lymphadenopathy. Supple, nontender, no meningeal signs. NEUROLOGICAL: Awake and alert. Cranial nerves II through XII intact. Normal speech. Laboratory Laboratory Tests Test 06/18/17 19:51 White Blood Count 9.6 Red Blood Count 4.77 Hemoglobin 15.0 Hematocrit 42.9 Mean Corpuscular Volume 90.1 Mean Corpuscular Hemoglobin 31.4 Mean Corpuscular Hemoglobin Concent 34.8 Red Cell Distribution Width 12.8 Platelet Count 345 Mean Platelet Volume 7.8 Neutrophils (%) (Auto) 68.4 Lymphocytes (%) (Auto) 22.9 Monocytes (%) (Auto) 7.4 Eosinophils (%) (Auto) 0.7 Basophils (%) (Auto) 0.6 Neutrophils # (Auto) 6.6 Lymphocytes # (Auto) 2.2 Monocytes # (Auto) 0.7 Eosinophils # (Auto) 0.1 Basophils # (Auto) 0.1 CBC Comment DIFF FINAL Differential Comment Prothrombin Time 10.8 Prothromb Time International Ratio 1.1 Activated Partial Thromboplast Time 25.0 Blood Urea Nitrogen 24 Creatinine 0.82 Random Glucose 84 Total Protein 8.2 Albumin 4.2 Calcium Level 9.0 Alkaline Phosphatase 39 Aspartate Amino Transf (AST/SGOT) 14 Alanine Aminotransferase (ALT/SGPT) 17 Total Bilirubin 0.4 Sodium Level 138 Potassium Level 4.1 Chloride Level 102 Carbon Dioxide Level 30.2 Anion Gap 6 Estimat Glomerular Filtration Rate 87 Result Diagram: 06/18/17195006/18/171950 Assessment and Plan Assessment and Plan Right peritonsillar abscess. On IV Clindamycin. Now improving. Can stop steroids. Would continue IV meds today, Sunday into Sunday. Anticipate discharge home Sunday. Will follow up tomorrow morning. Sid Castillo MD Jun 19, 2017 06:45
--- NOTE | 2017-06-19 08:13 | HHI.HP ---
HPI Service [facility] Hospitalists Primary Care Physician Marlon Sampson MD Admission Diagnosis tonsilar abscess, failed outpatient treatment Chief Complaint: sent by MD for IV abx for tonsilar abscess Travel History International Travel<30 Days: No Contact w/Intl Traveler <30 Da: No Traveled to Known Affected Are: No History of Present Illness There is a 21-year-old female patient with past medical history which includes vestibular nerve damage, Crohn's disease and anxiety. Patient presents to the emergency department as instructed by her ENT doctor Jonathan due to worsening peritonsillar abscess. Patient reports she has been going on for about 2-1/2 months now. Patient was originally seen by her primary care doctor who started her on azithromycin and then gave her Augmentin. She did follow with Dr. Castillo who has been following her and started her on Augmentin and dexamethasone. Despite abx and steroids patient's symptoms continued and patient was seen yesterday by Dr. Castillo who recommended that the patient go to [facility] for [place] antibiotics. Per patient the pain of her throat is 4 out of 10. Patient endorses pain with swallowing but she is able to swallow and able manage oral secretions. No hoarseness noted. Patient denies SOB, difficulty breathing, chest pain, fevers, chills, N/V. Review of Systems Constitutional: DENIES: Fatigue, Fever, Chills Ears, nose, mouth, throat: COMPLAINS OF: Throat pain Respiratory: DENIES: Cough, Sputum production, Shortness of breath Cardiovascular: DENIES: Chest pain, Dyspnea on Exertion, Lower Extremity Edema Gastrointestinal: DENIES: Abdominal pain, Constipation, Nausea, Vomiting Neurologic: DENIES: Abnormal gait, Headache, Localized weakness Psychiatric: DENIES: Anxiety, Confusion, Mood changes Past Family Social History Past Medical History vestibular nerve damage, Crohn's disease, asthma, migraines and anxiety Last menstrual period 06/17/2017 Past Surgical History Colon resection, septoplasty, multiple colonoscopies Reported Medications [Blueberry Extract] 1,000 Mg PO HS Turmeric 500 mg Capsule (Turmeric/Turmeric Root Extract) 450 Mg-50 Mg Capsule 500 Mg PO HS Echinacea 500 Mg Capsule 1,200 Mg PO BID Potassium Gluconate 500 Mg (83 Mg) Tab 99 Mg PO HS Probiotic (Lactobacillus Acidophilus) 10 Billion Cell Cap 1 Cap PO BID Vitamin D3 (Cholecalciferol) 5,000 Unit Cap 25,000 Units PO HS Jeanna Root (Jeanna (Zingiber Officinalis)) 500 Mg Cap 1,100 Mg PO HS Probiotic (Lactobacillus Acidophilus) 10 Billion Cell Cap 1 Cap PO HS Folic Acid 0.8 Mg Tab 800 Mcg PO HS Naltrexone (Naltrexone HCl) 50 Mg Tab 4.5 Mg PO DAILY Phenergan (Promethazine HCl) 25 Mg Tablet 25 Mg PO PRN Sprintec 28 (Norgestimate-Ethinyl Estradiol) 0.25-35 mg-Mcg Tab 1 Tab PO DAILY Alprazolam 0.25 Mg Tab 0.25 Mg PO TID PRN Benadryl Allergy (Diphenhydramine HCl) 25 Mg Cap 25 PO 4-6 TIMES A DAY Allergies: Coded Allergies: citalopram (Unverified Allergy, Severe, Hives, 03/09/17) clonazepam (Unverified Allergy, Severe, Dizziness, 03/09/17) dexamethasone (Verified Allergy, Severe, Hives, 06/18/17) infliximab (Unverified Allergy, Severe, Anaphylaxis, 03/09/17) infliximab-dyyb (Unverified Allergy, Severe, Anaphylaxis, 03/09/17) morphine (Unverified Allergy, Severe, Nausea/Vomiting, 03/09/17) Rat Serum Proteins (Verified Allergy, Unknown, 06/18/17) buspirone (Unverified Allergy, Unknown, 03/09/17) iron (Verified Allergy, Unknown, 06/18/17) Uncoded Allergies: HUMIRA (Allergy, Severe, ANAPHYLAXIS, 03/09/17) Family History Mother and sister have migraine headaches Father has diabetes mellitus and heart disease Mother and father both have hypertension Grandmother had pancreatic cancer grandfather Social History Patient denies EtOH use tobacco use or illicit drug use Physical Exam Vital Signs Vital Signs Date Time Temp Pulse Resp B/P (MAP) Pulse Ox O2 Delivery O2 Flow Rate FiO2 06/19/17 04:33 98.5 83 16 108/55 (72) 97 06/18/17 22:17 98.3 113 16 133/66 (88) 100 06/18/17 21:39 114 150/96 06/18/17 19:41 99.0 104 18 153/75 (101) 99 Physical Exam GENERAL: This is a well-nourished, well-developed patient, in no apparent distress. SKIN: No rashes, ecchymoses or lesions. Cool and dry. HEAD: Atraumatic. Normocephalic. No temporal or scalp tenderness. EYES: Pupils equal round and reactive. Extraocular motions intact. No scleral icterus. No injection or drainage. ENT: Nose without bleeding, purulent drainage or septal hematoma. Throat without erythema, tonsillar hypertrophy or exudate. Uvula midline. Airway patent. NECK: Trachea midline. No JVD or lymphadenopathy. Supple, nontender, no meningeal signs. CARDIOVASCULAR: Regular rate and rhythm without murmurs, gallops, or rubs. RESPIRATORY: Clear to auscultation. Breath sounds equal bilaterally. No wheezes , rales, or rhonchi. GASTROINTESTINAL: Abdomen soft, non-tender, nondistended. No hepato-splenomegaly , or palpable masses. No guarding. MUSCULOSKELETAL: Extremities without clubbing, cyanosis, or edema. No joint tenderness, effusion, or edema noted. No calf tenderness. Negative Homans sign bilaterally. NEUROLOGICAL: Awake and alert. Cranial nerves II through XII intact. Motor and sensory grossly within normal limits. Five out of 5 muscle strength in all muscle groups. Normal speech. Laboratory Laboratory Tests Test 06/18/17 19:51 White Blood Count 9.6 Red Blood Count 4.77 Hemoglobin 15.0 Hematocrit 42.9 Mean Corpuscular Volume 90.1 Mean Corpuscular Hemoglobin 31.4 Mean Corpuscular Hemoglobin Concent 34.8 Red Cell Distribution Width 12.8 Platelet Count 345 Mean Platelet Volume 7.8 Neutrophils (%) (Auto) 68.4 Lymphocytes (%) (Auto) 22.9 Monocytes (%) (Auto) 7.4 Eosinophils (%) (Auto) 0.7 Basophils (%) (Auto) 0.6 Neutrophils # (Auto) 6.6 Lymphocytes # (Auto) 2.2 Monocytes # (Auto) 0.7 Eosinophils # (Auto) 0.1 Basophils # (Auto) 0.1 CBC Comment DIFF FINAL Differential Comment Prothrombin Time 10.8 Prothromb Time International Ratio 1.1 Activated Partial Thromboplast Time 25.0 Blood Urea Nitrogen 24 Creatinine 0.82 Random Glucose 84 Total Protein 8.2 Albumin 4.2 Calcium Level 9.0 Alkaline Phosphatase 39 Aspartate Amino Transf (AST/SGOT) 14 Alanine Aminotransferase (ALT/SGPT) 17 Total Bilirubin 0.4 Sodium Level 138 Potassium Level 4.1 Chloride Level 102 Carbon Dioxide Level 30.2 Anion Gap 6 Estimat Glomerular Filtration Rate 87 Result Diagram: 06/18/17195006/18/171950 Caprini VTE Risk Assessment Caprini VTE Risk Assessment: No/Low Risk (score <= 1) Caprini Risk Assessment Model Point Value = 1 Point Value = 2 Point Value = 3 Point Value = 5 Age 41-60 Minor surgery BMI > 25 kg/m2 Swollen legs Varicose veins or History of unexplained or recurrent spontaneous Oral contraceptives or hormone replacement Sepsis (< 1 month) Serious lung disease, including pneumonia (< 1 month) Abnormal pulmonary function Acute myocardial infarction Congestive heart failure (< 1 month) History of inflammatory bowel disease Medical patient at bed rest Age 61-74 Arthroscopic surgery Major open surgery (> 45 min) Laparoscopic surgery (> 45 min) Malignancy Confined to bed (> 72 hours) Immobilizing plaster cast Central venous access Age >= 75 History of VTE Family history of VTE Factor V Leiden Prothrombin [id number] Lupus anticoagulant Anticardiolipin antibodies Elevated serum homocysteine Heparin-induced thrombocytopenia Other congenital or acquired thrombophilia Stroke (< 1 month) Elective arthroplasty Hip, pelvis, or leg fracture Acute spinal cord injury (< 1 month) Prophylaxis Regimen Total Risk Factor Score Risk Level Prophylaxis Regimen 0-1 Low Early ambulation 2 Moderate Order ONE of the following: *Sequential Compression Device (SCD) *Heparin 5000 units SQ BID 3-4 Higher Order ONE of the following medications: *Heparin 5000 units SQ TID *Enoxaparin/Lovenox 40 mg SQ daily (WT < 150 kg, CrCl > 30 mL/min) *Enoxaparin/Lovenox 30 mg SQ daily (WT < 150 kg, CrCl > 10-29 mL/min) *Enoxaparin/Lovenox 30 mg SQ BID (WT < 150 kg, CrCl > 30 mL/min) AND/OR *Sequential Compression Device (SCD) 5 or more Highest Order ONE of the following medications: *Heparin 5000 units SQ TID (Preferred with Epidurals) *Enoxaparin/Lovenox 40 mg SQ daily (WT < 150 kg, CrCl > 30 mL/min) *Enoxaparin/Lovenox 30 mg SQ daily (WT < 150 kg, CrCl > 10-29 mL/min) *Enoxaparin/Lovenox 30 mg SQ BID (WT < 150 kg, CrCl > 30 mL/min) AND *Sequential Compression Device (SCD) Assessment and Plan Problem List: (1) Tonsillar abscess ICD Codes: J36 - Peritonsillar abscess Status: Acute Plan: There is a 21-year-old female patient with past medical history which includes vestibular nerve damage, Crohn's disease and anxiety. Patient presents to the emergency department as instructed by her ENT doctor Jonathan due to worsening peritonsillar abscess. Patient reports she has been going on for about 2-1/2 months now. Patient was originally seen by her primary care doctor who started her on azithromycin and then gave her Augmentin. She did follow with Dr. Castillo who has been following her and started her on Augmentin and dexamethasone. Despite abx and steroids patient's symptoms continued and patient was seen yesterday by Dr. Castillo who recommended that the patient go to [facility] for IV antibiotics. Per patient the pain of her throat is 4 out of 10. Patient endorses pain with swallowing but she is able to swallow and able manage oral secretions. No hoarseness noted. Patient denies SOB, difficulty breathing, chest pain, fevers, chills, N/V. Clindamycin IV every 8 hours. Patient was initially placed on dexamethasone 4 mg IV every 6 hours which patient then had reaction requiring Epinephrine and Benadryl. Dexamethasone DC' d Consultation placed to ENT, appreciate input recommends no further steroids, continue IV antibiotics today and tomorrow possible discharge tomorrow afternoon. Plan to discharge once status improves and cleared by ENT Patient has not had imaging in the hospital will defer imaging to Dr. Castillo. Per ER PA patient had outpatient imaging with Dr. Jonathan Decker as needed for pain Discussed the risks of C diff. Patient has had C diff in the past. Patient reports she is having diarrhea more frequently then her normal Crohn's disease stool request C diff Throat culture requested Close observation and supportive care (2) Failure of outpatient treatment ICD Codes: Z78.9 - Other specified health status Status: Acute Plan: See above (3) Crohns disease ICD Codes: K50.90 - Crohn's disease, unspecified, without complications Plan: Patient has tried Humira with no improvement of symptoms Patient has had Remicade which resulted in anaphylactic shock partial bowel resection in the past Patient follows with [facility] outpatient Assessment and Plan Patient examined. Assessment and plan formulated with Yoanna Pacheco PA-C. I agree with the above. tonsillar abscess. multiple courses of po abx by pcp and ent. pt sent to ED by ENT for iv abx and steroids. pt reacted to decadron last night. apparently the tonsillar swelling has improved overnight. she has crohns dz. I'm worried she will develop cdiff. She is aware. Pt understands she may require tonsillectomy. culture sent. dc when ok with ENT> Physician Certification 2 Midnight Certification Type: Admission for Inpatient Services Order for Inpatient Services The services are ordered in accordance with Medicare regulations or non- Medicare payer requirements, as applicable. In the case of services not specified as inpatient-only, they are appropriately provided as inpatient services in accordance with the 2-midnight benchmark. Estimated LOS (days): 2 days is the estimated time the patient will need to remain in the hospital, assuming treatment plan goals are met and no additional complications. Post-Hospital Plan: Home Yoanna Pacheco Jun 19, 2017 08:13 Giorgio Yu MD Jun 19, 2017 13:42
[2017-06-19 09:02] VITALS: BP 113/64; PULSE 66; RESP 16; TEMP 97.8; O2SAT 99
[2017-06-19] MEDS: LACTOBACILLUS ACIDOPHILUS TAB PO SCH ×2 (12:00→20:58)
[2017-06-19 12:17] VITALS: BP 122/71; PULSE 95; RESP 18; TEMP 98.4; O2SAT 98
[2017-06-19] MEDS: ALPRAZolam 0.25 MG TAB PO PRN ×2 (13:49→20:58)
[2017-06-19 17:01] VITALS: BP 107/58; PULSE 88; RESP 18; TEMP 98.4; O2SAT 97
[2017-06-19 18:50] VITALS: PULSE 95
[2017-06-19 20:00] VITALS: BP 117/75; PULSE 120; PULSE 77; RESP 18; TEMP 98.1; O2SAT 99
[2017-06-20] VITALS: BP 112/56; PULSE 70; PULSE 81; RESP 18; TEMP 97.9; O2SAT 97
[2017-06-20 04:00] VITALS: BP 104/56; PULSE 70; PULSE 88; RESP 18; TEMP 99; O2SAT 98
[2017-06-20] MEDS: CLINDAMYCIN 900 MG/NS PREMIX 50 ML IV SCH (06:00)
[2017-06-20] MEDS: diphenhydrAMINE HCL 25 MG CAP PO PRN (06:15)
[2017-06-20 08:13] VITALS: BP 108/56; PULSE 69; RESP 17; TEMP 97.9; O2SAT 100
[2017-06-20] MEDS: LACTOBACILLUS ACIDOPHILUS TAB PO SCH (08:30)
[2017-06-20] MEDS ORDERED: NORGESTIMATE ETHINYL ESTRADIOL PO SCH (09:00)
--- NOTE | 2017-06-20 09:29 | HHI.PR ---
Subjective Remarks Tonsil feel better. No WBC elevation. Does have C diff from treatment. Objective Vital Signs Date Time Temp Pulse Resp B/P (MAP) Pulse Ox O2 Delivery O2 Flow Rate FiO2 06/20/17 04:00 70 06/20/17 04:00 99.0 88 18 104/56 (72) 98 06/20/17 00:00 Room Air 06/20/17 00:00 97.9 70 18 112/56 (74) 97 06/20/17 00:00 81 06/19/17 20:00 98.1 77 18 117/75 (89) 99 06/19/17 20:00 120 06/19/17 20:00 Room Air 06/19/17 18:50 95 06/19/17 17:01 98.4 88 18 107/58 (74) 97 06/19/17 12:17 98.4 95 18 122/71 (88) 98 I/O 06/19/17 06/19/17 06/19/17 06/20/17 06/20/17 06/20/17 07:00 15:00 23:00 07:00 15:00 23:00 Intake Total 380 ml Output Total 2 ml Balance 378 ml Intake Oral 280 ml IV Total 100 ml Output Urine Total 2 ml # Bowel Movements 1 0 Result Diagram: 06/18/17195006/18/171950 Assessment and Plan Assessment and Plan Right peritonsillar abscess. Has C diff. Tonsils look muche better. Can stop antibiotics. To be treated with Flagyl. Can discharge and follow as outpatient with ENT in 2 weeks. Sid Castillo MD Jun 20, 2017 09:29
--- NOTE | 2017-06-20 09:56 | HHI.PR ---
Subjective Remarks pt says her tonsils look smaller. swallowing ok no abdomen pain. no rectal bleeding no vomiting. no fevers or chills. Objective Vitals heart reg lung cta abd s/nt ext no edema Vital Signs Date Time Temp Pulse Resp B/P (MAP) Pulse Ox O2 Delivery O2 Flow Rate FiO2 06/20/17 04:00 70 06/20/17 04:00 99.0 88 18 104/56 (72) 98 06/20/17 00:00 Room Air 06/20/17 00:00 97.9 70 18 112/56 (74) 97 06/20/17 00:00 81 06/19/17 20:00 98.1 77 18 117/75 (89) 99 06/19/17 20:00 120 06/19/17 20:00 Room Air 06/19/17 18:50 95 06/19/17 17:01 98.4 88 18 107/58 (74) 97 06/19/17 12:17 98.4 95 18 122/71 (88) 98 Result Diagram: 06/18/17195006/18/171950 A/P Problem List: (1) Tonsillar abscess ICD Codes: J36 - Peritonsillar abscess Status: Acute Plan: There is a 21-year-old female patient with past medical history which includes vestibular nerve damage, Crohn's disease and anxiety. Patient presents to the emergency department as instructed by her ENT doctor Jonathan due to worsening peritonsillar abscess. Patient reports she has been going on for about 2-1/2 months now. Patient was originally seen by her primary care doctor who started her on azithromycin and then gave her Augmentin. She did follow with Dr. Castillo who has been following her and started her on Augmentin and dexamethasone. Despite abx and steroids patient's symptoms continued and patient was seen yesterday by Dr. Castillo who recommended that the patient go [place] [facility] [place]. Per patient the pain of her throat is 4 out of 10. Patient endorses pain with swallowing but she is able to swallow and able manage oral secretions. No hoarseness noted. Patient denies SOB, difficulty breathing, chest pain, fevers, chills, N/V. Patient was initially placed on dexamethasone 4 mg IV every 6 hours which patient then had reaction (flushing and ?throat tightening)requiring Epinephrine and Benadryl. Dexamethasone DC'd On further questioning pt says she has had perhaps 4 or 5 abx courses since the beginning of her tonillitis sx's. On admission she reported nml amt of bm's per day to be around 6 or 7 and for weeks since being on abx has had up to 15 per day. She was not alarmed and said it was nothing like her previous c diff episodes. denies f/c, no abd pain. also no rectal bleeding we checked her c diff pcr and it's positive. I spoke with Dr Castillo and we are stopping antibiotics. He says her right tonsillar abscess spontaneously drained. I discussed with Dr Castillo and the pt...I thing further abx should be avoided and just perform tonsillectomy should tonsillar infection continue to be a problem. d/c on 2 weeks flagyl and pt is to f/u with pcp and notify her MD with any concerning sx's prior. also she is established with [facility] (2) Failure of outpatient treatment ICD Codes: Z78.9 - Other specified health status Status: Acute Plan: See above (3) Crohns disease ICD Codes: K50.90 - Crohn's disease, unspecified, without complications Plan: Patient has tried Humira with no improvement of symptoms Patient has had Remicade which resulted in anaphylactic shock partial bowel resection in the past Patient follows with [facility] outpatient Giorgio Yu MD Jun 20, 2017 09:56
[2017-06-20] MEDS ORDERED: METR-1 PO (09:58)
--- NOTE | 2017-06-20 09:58 | HHI.DCPOC ---
Discharge Care Plan Diagnosis: (1) C. difficile colitis (2) Tonsillar abscess (3) Crohns disease Goals to Promote Your Health * To prevent worsening of your condition and complications * To maintain your health at the optimal level Directions to Meet Your Goals Take your medications as prescribed Follow your dietary instruction Follow activity as directed Keep your appointments as scheduled Take your immunizations and boosters as scheduled If your symptoms worsen call your PCP, if no PCP go to Urgent Care Center or Emergency Room Smoking is Dangerous to Your Health. Avoid second hand smoke Call the 24-hour hour crisis hotline for domestic abuse at Giorgio Yu MD Jun 20, 2017 09:58
[2017-06-20] MEDS ORDERED: metroNIDAZOLE 500 MG TAB PO ONE (10:00)
== END 2017-06-20 12:56 | disposition home or self-care (01) | DRG 153 ==
LOC: NEPE 19:38 → NEDA 21:36 → NEPGCP 22:13 → N04A 06-19 17:27
PROVIDERS: ADMIT Hospitalist; ATTEND Hospitalist
DX: J36 Peritonsillar abscess (principal); A04.72 Enterocolitis due to Clostridium difficile, not specified as recurrent; K50.90 Crohn's disease, unspecified, without complications; L27.0 Generalized skin eruption due to drugs and medicaments taken internally; T49.6X5A Adverse effect of otorhinolaryngological drugs and preparations, initial encounter; F41.9 Anxiety disorder, unspecified; Y92.238 Other place in hospital as the place of occurrence of the external cause; Z88.5 Allergy status to narcotic agent; Z90.49 Acquired absence of other specified parts of digestive tract
CPT/HCPCS: 80053; 85025; 85610; 85730; 87070; 87493; 96374; J0171; J1100; J1200

== ENCOUNTER 2017-06-24 19:46 | Emergency (ER) | payer OTHER ==
[~2017-06-24] VITALS: Ht 160 cm; Wt 50.0 kg
[~2017-06-24 19:46] MED LIST changes: -BENA25CA4 PO; +LACTCAP8 PO; +METR-1 PO; +PROM25TA10 PO; -ZOFR4TAB PO
[2017-06-24 20:54] VITALS: BP 135/98; PULSE 105; RESP 16; TEMP 98.5; O2SAT 98
--- NOTE | 2017-06-24 21:57 | PD ---
HPI Chief Complaint: Abdominal Pain Time Seen by Provider: 21:11 Travel History International Travel<30 days: No Contact w/Intl Traveler<30days: No Traveled to known affect area: No History of Present Illness HPI The patient is a 21 year old female who presents to the [facility] emergency department with a history of recently being diagnosed with a C. difficile infection after multiple courses of antibiotic for tonsillitis and a peritonsillar abscess. The patient was just discharged from the hospital on Sunday with this diagnosis and started on Flagyl on that day. She was told that if she had any worsening abdominal pain she should come back to the emergency department for evaluation. The patient reports having chronic abdominal pain related to her Crohn's. She reports that normally her pain is in the right lower quadrant of the abdomen and just underneath the umbilicus in the middle of the abdomen. She reports that approximately 4 hours prior to arrival she began to have a new pain in the left lower quadrant of the abdomen associated with her usual pains in the area just below the umbilicus and right lower quadrant of the abdomen. She reports that the pain is sharper in character. She reports having associated nausea without vomiting. Her primary care physician is Dr. Sampson. Her residential therapist is Dr. Andersen. She reports that at baseline with her Crohn's usually moves her bowels 6-7 times per day. She reports that while in the hospital she did have worsening loose stools within normal baseline frequency of 6-7 times per day. She reports that since starting the Flagyl her diarrhea has improved. She continues to move her bowels 6-7 times per day. She denies having any mucus or blood in her stools. She reports that she last ate a meal this morning. On review of systems otherwise, she denies having any known recent fevers, cough, congestion, neck pain, chest pain, shortness of breath, urinary symptoms, or neurologic symptoms. Last menstrual cycle: June 17, 2017. [facility] Past Medical History Narrative Medical The patient's past medical history is significant for vestibular nerve damage, history of Crohn's disease, history of asthma, migraine headaches, anxiety disorder, tonsillitis and peritonsillar abscess, recent diagnosis of C. difficile colitis. Asthma: Yes Blood Disorders: No Anxiety: Yes Cancer: No Cardiovascular Problems: No Diabetes: No Endocrine: No Genitourinary: No Musculoskeletal: No Neurologic: No Psychiatric: Yes Reproductive: No Respiratory: Yes Migraines: Yes Past Surgical History Narrative Surgical The patient's past surgical history is significant for partial colon resection, septoplasty, multiple colonoscopies. Abdominal Surgery: Yes (COLON RESECTION) Other Surgery: Yes (RECTAL SURGERY, SEPTAL) Social History Alcohol Use: No Tobacco Use: No Substance Use: No Allergies-Medications (Allergen,Severity, Reaction): Coded Allergies: citalopram (Unverified Allergy, Severe, Hives, 06/24/17) clonazepam (Unverified Allergy, Severe, Dizziness, 06/24/17) dexamethasone (Verified Allergy, Severe, Hives, 06/24/17) infliximab (Unverified Allergy, Severe, Anaphylaxis, 06/24/17) infliximab-dyyb (Unverified Allergy, Severe, Anaphylaxis, 06/24/17) morphine (Unverified Allergy, Severe, Nausea/Vomiting, 06/24/17) Rat Serum Proteins (Verified Allergy, Unknown, 06/24/17) buspirone (Unverified Allergy, Unknown, 06/24/17) iron (Verified Allergy, Unknown, 06/24/17) Uncoded Allergies: HUMIRA (Allergy, Severe, ANAPHYLAXIS, 03/09/17) Reported Meds & Prescriptions Reported Meds & Active Scripts Active Zofran (Ondansetron HCl) 4 Mg Tab 4 Mg PO Q6HR PRN Flagyl (Metronidazole) 500 Mg Tab 500 Mg PO TID 14 Days Reported Diphenhydramine (Diphenhydramine HCl) 25 Mg Cap 25 Mg PO Q4H PRN Naltrexone (Naltrexone HCl) 50 Mg Tab 4.5 Mg PO DAILY Probiotic (Lactobacillus Acidophilus) 10 Billion Cell Cap 1 Cap PO HS Phenergan (Promethazine HCl) 25 Mg Tablet 25 Mg PO PRN Sprintec 28 (Norgestimate-Ethinyl Estradiol) 0.25-35 mg-Mcg Tab 1 Tab PO DAILY Alprazolam 0.25 Mg Tab 0.25 Mg PO TID PRN Review of Systems Except as stated in HPI: all other systems reviewed are Neg General / Constitutional: No: Fever Eyes: No: Visual changes HENT: No: Headaches Cardiovascular: No: Chest Pain or Discomfort Respiratory: No: Shortness of Breath Gastrointestinal: Positive: Nausea, Diarrhea, Abdominal Pain, Loss of Appetite , No: Vomiting, Hematemesis, Hematochezia, Changes in Bowel Habits, Indigestion Genitourinary: No: Dysuria Musculoskeletal: No: Pain Skin: No Rash Neurologic: No: Weakness Psychiatric: No: Depression Endocrine: No: Polydipsia Hematologic/Lymphatic: No: Easy Bruising Physical Exam Narrative General: The patient is a well-developed well-nourished female in no acute distress. Head and Neck exam: Head is normocephalic atraumatic. Eyes: EOMI, pupils are equal round and reactive to light. Nose: Midline septum with pink mucous membranes Mouth: Dentition unremarkable. Moist mucus membranes. Posterior oropharynx is erythematous with tonsillar hypertrophy slightly worse on the right compared to the left. No exudates are noted. Uvula midline. Airway patent. Neck: No palpable lymphadenopathy. No nuchal rigidity. No thyromegaly. Cardiovascular: Regular rate and rhythm without murmurs, gallops, or rubs. Lungs: Clear to auscultation bilaterally. No wheezes, rhonchi, or rales. Abdomen: Soft, with reported tenderness on palpation of the area just below the umbilicus and bilateral lower quadrants of the abdomen. No tenderness on palpation of McBurney's point. Negative Delgado sign. Normal bowel sounds are audible. No guarding, rebound, or rigidity. Extremities: No clubbing, cyanosis, or edema. 2+ pulses in all 4 extremities. Back: No spinous process tenderness to palpation. No costovertebral angle tenderness to palpation. Neurologic Exam: Grossly nonfocal. Skin Exam: No rash noted. Intact skin that is warm and dry. Data Data Last Documented VS Vital Signs Date Time Temp Pulse Resp B/P (MAP) Pulse Ox O2 Delivery O2 Flow Rate FiO2 06/24/17 20:54 98.5 105 16 135/98 (110) 98 Room Air Orders Orders Complete Blood Count With Diff (06/24/17 21:20) Comprehensive Metabolic Panel (06/24/17 21:20) Prothrombin Time / Inr (Pt) (06/24/17 21:20) Act Partial Throm Time (Ptt) (06/24/17 21:20) C-Reactive Protein (Crp) (06/24/17 21:20) Lipase (06/24/17 21:20) Westergren Sedimentation Rate (06/24/17 21:20) Magnesium (Mg) (06/24/17 21:20) Enteric Path (Stool) (06/24/17 21:20) C Diff Toxin Pcr (06/24/17 21:20) Iv Access Insert/Monitor (06/24/17 21:20) Ecg Monitoring (06/24/17 21:20) Oximetry (06/24/17 21:20) Stool Wbc (Leukocytes) (06/24/17 21:20) Ed Urine Pregnancytest Poc (06/24/17 21:20) Sodium Chlor 0.9% 1000 Ml Inj (Ns 1000 M (06/24/17 22:00) Ondansetron Inj (Zofran Inj) (06/24/17 22:00) Diphenhydramine (Benadryl) (06/24/17 22:45) Ct Abd/Pel W Iv Contrast(Rout) (06/24/17 22:52) Iohexol 350 Inj (Omnipaque 350 Inj) (06/24/17 23:18) Labs Laboratory Tests Test 06/24/17 21:50 White Blood Count 7.7 TH/MM3 Red Blood Count 5.05 MIL/MM3 Hemoglobin 15.6 GM/DL Hematocrit 45.1 % Mean Corpuscular Volume 89.5 FL Mean Corpuscular Hemoglobin 30.8 PG Mean Corpuscular Hemoglobin Concent 34.4 % Red Cell Distribution Width 12.3 % Platelet Count 251 TH/MM3 Mean Platelet Volume 8.3 FL Neutrophils (%) (Auto) 69.2 % Lymphocytes (%) (Auto) 23.3 % Monocytes (%) (Auto) 6.9 % Eosinophils (%) (Auto) 0.2 % Basophils (%) (Auto) 0.4 % Neutrophils # (Auto) 5.3 TH/MM3 Lymphocytes # (Auto) 1.8 TH/MM3 Monocytes # (Auto) 0.5 TH/MM3 Eosinophils # (Auto) 0.0 TH/MM3 Basophils # (Auto) 0.0 TH/MM3 CBC Comment DIFF FINAL Differential Comment Erythrocyte Sedimentation Rate 1 mm/hr Prothrombin Time 10.7 SEC Prothromb Time International Ratio 1.1 RATIO Activated Partial Thromboplast Time 25.7 SEC Blood Urea Nitrogen 8 MG/DL Creatinine 0.80 MG/DL Random Glucose 81 MG/DL Total Protein 8.5 GM/DL Albumin 4.4 GM/DL Calcium Level 9.1 MG/DL Magnesium Level 2.1 MG/DL Alkaline Phosphatase 37 U/L Aspartate Amino Transf (AST/SGOT) 18 U/L Alanine Aminotransferase (ALT/SGPT) 23 U/L Total Bilirubin 0.4 MG/DL Sodium Level 139 MEQ/L Potassium Level 3.7 MEQ/L Chloride Level 103 MEQ/L Carbon Dioxide Level 26.5 MEQ/L Anion Gap 10 MEQ/L Estimat Glomerular Filtration Rate 90 ML/MIN C-Reactive Protein 0.40 MG/DL Lipase 136 U/L [facility] Medical Decision Making Medical Screen Exam Complete: Yes Emergency Medical Condition: Yes Medical Record Reviewed: Yes Interpretation(s) Last Impressions Abdomen/Pelvis CT 06/24/17 1158 Signed Impressions: Service Date/Time: Saturday, June 24, 2017 23:15 - CONCLUSION: 1. No acute findings on abdomen and pelvic CT. Sid Lopez MD Differential Diagnosis Exacerbation of Crohn's, versus C. difficile colitis, versus abscess, versus colonic spasm Narrative Course During the course of the patient's emergency department visit, the patient's history, examination, and differential diagnosis were reviewed with the patient. The patient was placed on a laboratory monitor with oximetry and frequent blood pressure monitoring. The patient had IV access obtained and blood work sent for analysis. The patient was initially provided normal saline 1 L IV fluid bolus, Zofran 4 mg IV. The patient requested Benadryl for allergy symptoms and was given Benadryl 25 mg p.o. 1 The patient's laboratory studies were reviewed and remarkable for a white count of 7.7, hemoglobin 15.6, platelets 251 with a normal differential, sedimentation rate is 1. CMP is remarkable for an alk phos of 37, C-reactive protein 0.40, total protein 8.5, lipase 136, PT PTT within normal limits Radiology studies were reviewed and remarkable for a CT scan of the abdomen and pelvis that shows no acute abnormality. Stool studies were ordered on this patient, however she has not been able to provide a stool sample. The patient was instructed to follow-up with her primary care physician for repeat testing for C. difficile colitis, however at this time the patient can continue on the Flagyl as previously prescribed. The patient will be sent home with a prescription for Zofran and instructed to push fluids and get plenty of rest. The patient is resting comfortably and feels better, is alert and in no distress. The patient's results and examination findings were discussed with the patient. The repeat examination is unremarkable and benign. The history, exam, diagnostic testing, and current condition do not suggest any significant pathology to warrant further testing, continued ED treatment, admission, or surgical evaluation at this point. The vital signs have been stable. The patient does not have uncontrollable pain, intractable vomiting, or other significant symptoms. The patient's condition is stable and appropriate for discharge. The patient will pursue further outpatient evaluation with a primary care physician or other designated or consulting physician as indicated in the discharge instructions. The patient expressed understanding and was agreeable with this plan. Diagnosis Primary Impression: Abdominal pain Qualified Codes: R10.30 - Lower abdominal pain, unspecified Referrals: Margie Andersen MD 1 week Primary Care Physician 2 days Patient Instructions: Abdominal Pain (ED), General Instructions Med/Other Pt SpecificInfo: Prescription(s) given Scripts Ondansetron (Zofran) 4 Mg Tab 4 MG PO Q6HR Y for NAUSEA OR VOMITING, #20 TAB 0 Refills Prov: Juhi Brooks MD 06/24/17 Disposition: 01 DISCHARGE HOME Condition: Stable Juhi Brooks MD Jun 24, 2017 21:57
[2017-06-24] MEDS ORDERED: SODIUM CHLOR 0.9% 1000 ML INJ 1,000 ML IV ONE (22:00)
[2017-06-24] MEDS ORDERED: ONDANSETRON HCL 4 MG/2 ML VIAL IV ONE (22:00)
[2017-06-24 22:15] LABS: AUTOMATED NEUTROPHIL # 5.3 TH/MM3 (1.8-7.7); BASOPHIL % 0.4 % (0.0-2.0); EOSINOPHIL % 0.2 % (0.0-4.0); HEMATOCRIT 45.1 % (35.0-46.0); HEMOGLOBIN 15.6 GM/DL (11.6-15.3); LYMPH % 23.3 % (9.0-44.0); LYMPHOCYTE # 1.8 TH/MM3 (1.0-4.8); MEAN CELL VOLUME 89.5 FL (80.0-100.0); MEAN CORPUSCULAR HEMOGLOBIN 30.8 PG (27.0-34.0); MEAN CORPUSCULAR HGB CONC 34.4 % (32.0-36.0); MEAN PLATELET VOLUME 8.3 FL (7.0-11.0); MONO % 6.9 % (0.0-8.0); MONOCYTE # 0.5 TH/MM3 (0-0.9); NEUT % 69.2 % (16.0-70.0); PLATELET COUNT 251 TH/MM3 (150-450); RED BLOOD COUNT 5.05 MIL/MM3 (4.00-5.30); RED CELL DISTRIBUTION WIDTH 12.3 % (11.6-17.2); WHITE BLOOD COUNT 7.7 TH/MM3 (4.0-11.0)
[2017-06-24 22:21] LABS: INTERNATIONAL NORMALIZED RATIO 1.1 RATIO; PROTHROMBIN TIME - PATIENT 10.7 SEC (9.8-11.6)
[2017-06-24] MEDS ORDERED: NALT50TA3 PO (22:23)
[2017-06-24] MEDS ORDERED: DIPH25CA PO (22:24)
[2017-06-24 22:27] LABS: ALBUMIN 4.4 GM/DL (3.4-5.0); AST (GOT) 18 U/L (15-37); BICARBONATE 26.5 MEQ/L (21.0-32.0); BLOOD UREA NITROGEN 8 MG/DL (7-18); CALCIUM 9.1 MG/DL (8.5-10.1); CHLORIDE 103 MEQ/L (98-107); GLOMERULAR FILTRATION RATE 90 ML/MIN (>89); GLUCOSE,RANDOM 81 MG/DL (74-106); MAGNESIUM 2.1 MG/DL (1.5-2.5); SODIUM (NA) 139 MEQ/L (136-145)
[2017-06-24 22:31] LABS: ALKALINE PHOSPHATASE 37 U/L (45-117); ALT (GPT) 23 U/L (10-53); TOTAL BILIRUBIN ADULT 0.4 MG/DL (0.2-1.0); TOTAL PROTEIN 8.5 GM/DL (6.4-8.2)
[2017-06-24] MEDS ORDERED: diphenhydrAMINE HCL 25 MG CAP PO ONE (22:45)
[2017-06-24] MEDS ORDERED: IOHEXOL 350 MG/ML 10 ML VIAL (for RAD DIAG) IVCONTRAST ONE (23:18)
--- NOTE | 2017-06-24 23:33 | RADRPT ---
EXAM DATE/TIME: 06/24/2017 23:15 [facility] COMPARISON: No previous studies available for comparison. INDICATIONS : Abdomen pain with history of Crohn's. IV CONTRAST: 95 cc Omnipaque 350 (iohexol) IV ORAL CONTRAST: No oral contrast ingested. RADIATION DOSE: 5.14 CTDIvol (mGy) MEDICAL HISTORY : Crohn's disease. SURGICAL HISTORY : Colon resection. ENCOUNTER: Initial ACUITY: 1 day PAIN SCALE: 7/10 LOCATION: Bilateral abdomen TECHNIQUE: Volumetric scanning of the abdomen and pelvis was performed. Using automated exposure control and ad justment of the mA and/or kV according to patient size, radiation dose was kept as low as reasonably achievable to obtain optimal diagnostic quality images. DICOM format image data is available electro nically for review and comparison. FINDINGS: LOWER LUNGS: The visualized lower lungs are clear. LIVER: Homogeneous density without lesion. There is no dilation of the biliary tree. No calcified gallston es. SPLEEN: Normal size without lesion. PANCREAS: Within normal limits. KIDNEYS: Normal in size and shape. There is no mass, stone or hydronephrosis. ADRENAL GLANDS: Within normal limits. VASCULAR: There is no aortic aneurysm. BOWEL/MESENTERY: The stomach, small bowel, and colon demonstrate no acute abnormality. There is no free intraperitone al air or fluid. ABDOMINAL WALL: Within normal limits. RETROPERITONEUM: There is no lymphadenopathy. BLADDER: No wall thickening or mass. REPRODUCTIVE: Within normal limits. INGUINAL: There is no lymphadenopathy or hernia. MUSCULOSKELETAL: Within normal limits for patient age. CONCLUSION: 1. No acute findings on abdomen and pelvic CT. Sid Lopez MD on June 24, 2017 at 23:29 Board Certified Radiologist. This report was verified electronically.
[2017-06-24] MEDS ORDERED: ZOFR4TAB PO (23:47)
[2017-06-24 23:53] VITALS: BP 128/64; PULSE 68; RESP 15; O2SAT 98
== END 2017-06-25 | disposition home or self-care (01) ==
LOC: NEPC 19:46
DX: R10.32 Left lower quadrant pain (principal); G89.29 Other chronic pain; K50.90 Crohn's disease, unspecified, without complications; J45.909 Unspecified asthma, uncomplicated; Z79.899 Other long term (current) drug therapy; Z88.5 Allergy status to narcotic agent
CPT/HCPCS: 74177; 80053; 83690; 83735; 84703; 85025; 85610; 85652; 85730; 86140; 96361; 96374; 99285; J2405; J7030; Q9967

== ENCOUNTER → 2017-07-18 | Day surgery (SDC) | payer OTHER ==
--- NOTE | 2017-07-16 12:59 | MH ---
cc: Sid Castillo MD DATE OF ADMISSION: 07/18/2017 INDICATIONS: This is a 21-year-old female with chronic recurrent tonsillitis, multiple bouts of tonsillitis and a right peritonsillar abscess. She has not responded to medical therapy and has had drainage. She is to undergo tonsillectomy. PAST MEDICAL HISTORY: Significant for chronic inflammatory bowel disease with Crohn's disease, history of anemia. PAST SURGICAL HISTORY: Previous GI procedures, colonoscopy, gastric surgery and plasmapheresis. MEDICATION ALLERGIES: INCLUDE KETAMINE, HUMIRA AND REMICADE. CURRENT MEDICATIONS: Include Atrovent and Bactroban. PHYSICAL EXAMINATION: GENERAL: A well-developed, well-nourished female, in no apparent distress. HEENT: Normocephalic and atraumatic. Extraocular motion is intact. External ear canals clear. Lips, oral mucosa or pharynx show no lesions. Tonsils 3+ erythema. Nasal exam shows no lesions. NECK: Shows no masses. CHEST: Clear to auscultation. HEART: Regular rate. ABDOMEN: Soft. EXTREMITIES: No lesions. NEUROLOGIC: Nonfocal. ASSESSMENT: A 21-year-old female with chronic bowel disease with chronic recurrent tonsillitis, right tonsil abscess noted with tonsillectomy. The risks and benefits discussed with the patient and her father. The risks include, but not limited to those of anesthesia, bleeding, unfavorable scarring, velopharyngeal insufficiency, dehydration, depression, abscess, bleeding, voice change, airway obstruction. The patient states she understands and accepts the risks of the procedure. Sid Castillo MD JPM/DL , 12:43 PM , 12:59 PM
[~2017-07-18] VITALS: Ht 160 cm; Wt 56.5 kg
[~2017-07-18] MED LIST changes: +*HYDROmorphone PF 0.5 MG/0.5 ML PERIprocedure ONLY ONE; +*PROMETHAZINE 25 MG/ML VIAL PERIprocedural use ONLY ONE; +ACETAMINOPHEN 1000 MG/100 ML 100 ML IV ONE; +ACETAMINOPHEN 325MG/HYDROcodone 7.5MG/15ML UDC PO PRN; +CBD OIL SL; +CHLORHEXIDINE GLUCONATE 2 % 1 PACK (2 CLOTHS) TOPICAL PRN; +DEXAMETHASONE SOD PHOS 4 MG/ML VIAL ONE; +DIPH25CA PO; +DO NOT ADM ANY ANTICOAGULANT DRUGS PRN; +ECHI500C5 PO; +FOLI800T PO; +GING500C PO; +LACTATED RINGER'S 1000 ML IV PRN; +LIDOCAINE HCL 1% PF 5 ML SYRINGE OTHER ONE; +MEPERIDINE HCL 50 MG/ML VIAL IV PRN; +MEPERIDINE HCL 50 MG/ML VIAL ONE; +METOPROLOL TARTRATE 25 MG TAB PO PRN; -METR-1 PO; +NALT50TA3 PO; +ONDANSETRON HCL 4 MG/2 ML VIAL IV ONE; +ONDANSETRON ODT 4 MG TAB PO PRN; +POTA10TA15 PO; +POVIDONE IODINE 5% (ANTISEPSIS KIT) 4 APPLICATIONS EACH NARE PRN; +PROMETHAZINE INJ 25 MG/ML VIAL ONE; +PROPOFOL 200 MG/20 ML AMP IV ONE; +ROCURONIUM INJ 50 MG/5 ML SYRINGE IV PUSH ONE; +SODIUM CHLORID 0.9% 500 ML IV PRN; +SUGAMMADEX SODIUM 200 MG/2 ML VIAL IV PUSH ONE; +TURM500C7 PO; +VENTAER INH; +VITA1000 PO; +VITA500C18 PO
[2017-07-18 08:02] LABS: AUTOMATED NEUTROPHIL # 2.2 TH/MM3 (1.8-7.7); BASOPHIL % 0.8 % (0.0-2.0); EOSINOPHIL % 0.9 % (0.0-4.0); HEMATOCRIT 40.2 % (35.0-46.0); HEMOGLOBIN 13.8 GM/DL (11.6-15.3); LYMPH % 38.2 % (9.0-44.0); LYMPHOCYTE # 1.7 TH/MM3 (1.0-4.8); MEAN CELL VOLUME 91.2 FL (80.0-100.0); MEAN CORPUSCULAR HEMOGLOBIN 31.3 PG (27.0-34.0); MEAN CORPUSCULAR HGB CONC 34.4 % (32.0-36.0); MEAN PLATELET VOLUME 8.3 FL (7.0-11.0); MONO % 11.3 % (0.0-8.0); MONOCYTE # 0.5 TH/MM3 (0-0.9); NEUT % 48.8 % (16.0-70.0); PLATELET COUNT 262 TH/MM3 (150-450); RED BLOOD COUNT 4.41 MIL/MM3 (4.00-5.30); WHITE BLOOD COUNT 4.6 TH/MM3 (4.0-11.0)
--- NOTE | 2017-07-18 10:05 | MR ---
cc: Sid Castillo MD DATE OF PROCEDURE: 07/18/2017 HISTORY OF PRESENT ILLNESS: This is a 21-year-old female who had a tonsil abscess. She has chronic recurrent tonsillitis. She has not responded to medical therapy. Plan is for tonsillectomy. PREOPERATIVE DIAGNOSIS: Chronic tonsillitis, recurrent tonsillitis, tonsil abscess. POSTOPERATIVE DIAGNOSIS: Chronic tonsillitis, recurrent tonsillitis, tonsil abscess. PROCEDURE: Tonsillectomy. SUMMARY: The patient was brought to the operating room and placed in the supine position, successfully placed under general anesthesia and prepared in the usual fashion for this procedure. Oral cavity was exposed with a retractor. No submucosal cleft. The right tonsil was removed with coblation technique from superior to inferior. The left tonsil was removed in a similar fashion. Both tonsillar beds inspected for hemostasis which was obtained by suction cautery. The patient tolerated the procedure well. She was suctioned. She had retractors removed. She was awakened, extubated, and taken to recovery in stable condition. Sid Castillo MD JPM/DL , 09:49 AM , 10:04 AM MTDD
[2017-07-18 12:25] VITALS: BP 106/70; PULSE 83; RESP 16; TEMP 97.7; O2SAT 100
== END | disposition home or self-care (01) ==
LOC: HSDC 06:59
PROVIDERS: ATTEND Specialist
DX: J03.91 Acute recurrent tonsillitis, unspecified (principal); K50.90 Crohn's disease, unspecified, without complications
CPT/HCPCS: 00170; 42826; 85025; 88304; J0131; J1170; J2175; J2405; J2550; J3010; J7120; J1100